=== PATIENT | female | born 1995 ===

== ENCOUNTER 2018-05-14 11:30 | Emergency (ER) | payer OTHER ==
[2018-05-14 11:35] VITALS: BMI 44.4
[2018-05-14 11:45] VITALS: BP 132/83; PULSE 92; RESP 16; TEMP 98.4; O2SAT 98
[2018-05-14] MEDS ORDERED: Sodium Chloride 0.9% 1,000 ML IV STA (11:49)
[2018-05-14 13:15] LABS: BASO # 0.03 K/mm3 (0.0-2.0); BASO % 0.4 % (0.0-3.0); EOS # 0.2 (0.0-0.7); EOS % 2.1 % (1.5-5.0); GRAN # 3.47 (1.4-6.5); GRAN % 49.1 % (50.0-68.0); HEMOGLOBIN 12.5 g/dL (12.0-16.0); LYMPH # 3.1 (1.2-3.4); LYMPH % 43.7 % (22.0-35.0); MEAN CELL VOLUME 83.4 fl (80.0-105.0); MEAN CORPUSCULAR HEMOGLOBIN 27.7 pg (25.0-35.0); MEAN CORPUSCULAR HGB CONC 33.2 g/dl (31.0-37.0); MEAN PLATELET VOLUME 9.8 fl (7.0-11.0); MONO # 0.3 (0.1-0.6); MONO % 4.7 % (1.0-6.0); RBC 4.51 10^6/uL (3.5-6.1); RED CELL DISTRIBUTION WIDTH 13.5 % (11.5-14.5); WHITE BLOOD COUNT 7.1 10^3/uL (4.5-11.0)
[2018-05-14 13:22] LABS: INR 1.09; PARTIAL THROMBOPLASTIN TIME 28.6 Seconds (25.1-36.5); PROTHROMBIN TIME 12.5 SECONDS (9.4-12.5)
[2018-05-14 13:31] LABS: ALB/GLOB RATIO 1.3 (1.1-1.8); ALBUMIN 4.8 g/dL (3.0-4.8); ALT/SGPT 46 U/L (7-56); AST/SGOT 49 U/L (14-36); BLOOD UREA NITROGEN 11 mg/dL (7-21); CALCIUM 9.2 mg/dL (8.4-10.5); GFR NON-AFRICAN AMERICAN > 60
--- NOTE | 2018-05-14 13:54 | ED PDOC ---
Arrival/HPI - General Historian: Patient - History of Present Illness Narrative History of Present Illness (Text): 05/14/18 13:47 22-year-old female presents today with lower abdominal cramping and vaginal bleeding. Patient states she's been having vaginal bleeding for the past 10 days. Patient states she is not sure when her last menstrual period was but she knows that it was last month. Patient states she believes that her period came on 10 days ago and she has been bleeding nonstop since. pt states this has been happening for the past 3 months where she will bleed for 10+ days. She denies chest pain or shortness of breath. Denies dizziness or weakness. Denies dysuria or urinary frequency. Denies back pain. pt states she has appointment with HOUSEPERSON tomorrow. No other complaints <Malgorzata Yen - Last Filed: 05/14/18 17:02> <Tarik Chun - Last Filed: 05/14/18 17:14> - General Chief Complaint: Female Genitourinary Time Seen by Provider: 05/14/18 11:36 Past Medical History - Provider Review Nursing Documentation Reviewed: Yes - Travel History Have you recently traveled outside [place] w/in the past 3 mons?: No - Psychiatric Hx Substance Use: No - Anesthesia Hx Anesthesia: No Hx Anesthesia Reactions: No Hx Malignant Hyperthermia: No <Malgorzata Yen - Last Filed: 05/14/18 17:02> Family/Social History - Physician Review Nursing Documentation Reviewed: Yes Family/Social History: Unknown Family HX Smoking Status: Never Smoked Hx Alcohol Use: No Hx Substance Use: No <Malgorzata Yen - Last Filed: 05/14/18 17:02> Allergies/Home Meds <Malgorzata Yen - Last Filed: 05/14/18 17:02> <Tarik Chun - Last Filed: 05/14/18 17:14> Allergies/Adverse Reactions: Allergies No Known Allergies Allergy (Verified 05/14/18 11:34) Home Medications: Home Meds Medication Instructions Recorded Confirmed RX: No Known Home Med 05/14/18 05/14/18 Review of Systems - Review of Systems Constitutional: absent: Fatigue, Fevers Respiratory: absent: SOB, Cough Cardiovascular: absent: Chest Pain, Palpitations Gastrointestinal: Abdominal Pain (lower pelvic cramping). absent: Constipation, Diarrhea, Nausea, Vomiting Genitourinary Female: Vaginal Bleeding. absent: Dysuria, Frequency, Hematuria Musculoskeletal: absent: Arthralgias, Back Pain, Neck Pain Skin: absent: Rash, Pruritis Neurological: absent: Headache, Dizziness Psychiatric: absent: Anxiety, Depression <Malgorzata Yen T - Last Filed: 05/14/18 17:02> Physical Exam Vital Signs Reviewed: Yes Vital Signs Temp Pulse Resp BP Pulse Ox 05/14/18 11:43 98.4 F 92 H 16 132/83 98 Temperature: Afebrile Blood Pressure: Normal Pulse: Regular Respiratory Rate: Normal Appearance: Positive for: Well-Appearing, Non-Toxic, Comfortable Pain Distress: None Mental Status: Positive for: Alert and Oriented X 3 - Systems Exam Head: Present: Atraumatic Mouth: Present: Moist Mucous Membranes Neck: Present: Normal Range of Motion Respiratory/Chest: Present: Clear to Auscultation, Good Air Exchange. No: Respiratory Distress, Accessory Muscle Use Cardiovascular: Present: Regular Rate and Rhythm, Normal S1, S2. No: Murmurs Abdomen: No: Tenderness, Distention, Rebound, Guarding Genitourinary/Pelvic Exam: Present: Normal External Genitalia, Vaginal Bleeding (minimal vaginal bleeding), Cervical os Closed, Other (chaparoned by Mabel doyle RN). No: Vaginal Discharge, Vaginal Lesions, Adenexal Tenderness, Adenexal Mass, Cervical Motion Tendernes, Odor Back: Present: Normal Inspection Upper Extremity: Present: Normal ROM Lower Extremity: Present: Normal ROM Neurological: Present: GCS=15 Skin: Present: Warm, Dry, Normal Color. No: Rashes Psychiatric: Present: Alert, Oriented x 3 <Malgorzata Yen T - Last Filed: 05/14/18 17:02> Vital Signs Temp Pulse Resp BP Pulse Ox 05/14/18 11:43 98.4 F 92 H 16 132/83 98 <Tarik Chun - Last Filed: 05/14/18 17:14> Medical Decision Making ED Course and Treatment: 05/14/18 13:54 Patient is nontoxic well appearing in no distress. vital signs are stable. CBC: wnl CMP: wnl Beta hCG: wnl Ultrasound: FINDINGS: UTERUS: Measures 7.4 x 3.8 x 4.8 cm. Normal in size and appearance. No fibroid or other mass lesion seen. ENDOMETRIUM: Measures 12.4 mm in diameter. No focal cystic or solid lesion associated. CERVIX: Cervix is remarkable for a few nabothian cyst anteriorly as well as posteriorly. RIGHT OVARY: Measures 4.1 x 2.3 x 3.1 cm. No solid mass. Normal flow. Multiple small cysts are identified suggestive of follicles with the largest measuring 1.4 cm greatest Dimension. LEFT OVARY: Measures 3.6 x 2.2 x 4.0 cm. No solid mass. Normal flow. Multiple follicles are identified with the largest measuring only 1.0 cm greatest dimension. FREE FLUID: No significant free fluid noted. OTHER FINDINGS: None. IMPRESSION: 1. Unremarkable uterus. 2. A few nabothian cysts seen related to the cervix which is otherwise unremarkable. 3. No ultrasound evidence of solid mass, suspicious cystic change or torsion pattern at either ovary. Bilateral follicles identified instead, somewhat greater the right than left side. Discussed all the results the patient. advised f/u with the foundry helper within the next 2 days. advised immediate return if symptoms worsen,persist or if new symptoms develop. Impression: Vaginal bleeding Tylenol every 4 hours as needed for pain Increase fluids Followup with the alloy weigher within the next 2 days Return immediately if symptoms worsen persist or if new symptoms develop: High fevers, heavy bleeding, severe abdominal pain, vomiting, diarrhea, dizziness or weakness or any other concerning symptoms develop. - Lab Interpretations Lab Results: 05/14/18 13:00 05/14/18 13:00 Lab Results 05/14/18 13:00: WBC 7.1, RBC 4.51, Hgb 12.5, Hct 37.6, MCV 83.4, MCH 27.7, MCHC 33.2, RDW 13.5, Plt Count 334, MPV 9.8, Gran % 49.1 L, Lymph % (Auto) 43.7 H, Hawkins % (Auto) 4.7, Eos % (Auto) 2.1, Baso % (Auto) 0.4, Gran # 3.47, Lymph # (Auto) 3.1, Hawkins # (Auto) 0.3, Eos # (Auto) 0.2, Baso # (Auto) 0.03 05/14/18 13:00: Sodium 142, Potassium 4.0, Chloride 102, Carbon Dioxide 29, Anion Gap 15, BUN 11, Creatinine 0.6 L, Est GFR ( Amer) > 60, Est GFR (Non-Af Amer) > 60, Random Glucose 89, Calcium 9.2, Total Bilirubin 0.3, AST 49 H, ALT 46, Alkaline Phosphatase 86, Total Protein 8.7 H, Albumin 4.8, Globulin 3.8, Albumin/Globulin Ratio 1.3 05/14/18 13:00: PT 12.5, INR 1.09, APTT 28.6 - RAD Interpretation Radiology Orders: 05/14/18 13:25 TRANSVAGINAL [US] Stat - Medication Orders Current Medication Orders: Discontinued Medications Sodium Chloride (Sodium Chloride 0.9%) 1,000 mls @ 999 mls/hr IV .Q1H1M STA Stop: 05/14/18 12:49 Last Admin: 05/14/18 12:58 Dose: 999 mls/hr eMAR Start Stop Document 05/14/18 12:58 KV (Rec: 05/14/18 12:58 KV [facility] [id number]) Intravenous Solution Start Date 05/14/18 Start Time 12:58 <Malgorzata Yen - Last Filed: 05/14/18 17:02> - Lab Interpretations Lab Results: 05/14/18 13:00 05/14/18 13:00 Lab Results 05/14/18 13:00: WBC 7.1, RBC 4.51, Hgb 12.5, Hct 37.6, MCV 83.4, MCH 27.7, MCHC 33.2, RDW 13.5, Plt Count 334, MPV 9.8, Gran % 49.1 L, Lymph % (Auto) 43.7 H, Hawkins % (Auto) 4.7, Eos % (Auto) 2.1, Baso % (Auto) 0.4, Gran # 3.47, Lymph # (Auto) 3.1, Hawkins # (Auto) 0.3, Eos # (Auto) 0.2, Baso # (Auto) 0.03 05/14/18 13:00: Beta HCG, Quant < 2.39 05/14/18 13:00: Sodium 142, Potassium 4.0, Chloride 102, Carbon Dioxide 29, Anion Gap 15, BUN 11, Creatinine 0.6 L, Est GFR ( Amer) > 60, Est GFR (Non-Af Amer) > 60, Random Glucose 89, Calcium 9.2, Total Bilirubin 0.3, AST 49 H, ALT 46, Alkaline Phosphatase 86, Total Protein 8.7 H, Albumin 4.8, Globulin 3.8, Albumin/Globulin Ratio 1.3 05/14/18 13:00: PT 12.5, INR 1.09, APTT 28.6 - Medication Orders Current Medication Orders: Discontinued Medications Sodium Chloride (Sodium Chloride 0.9%) 1,000 mls @ 999 mls/hr IV .Q1H1M STA Stop: 05/14/18 12:49 Last Admin: 05/14/18 12:58 Dose: 999 mls/hr eMAR Start Stop Document 05/14/18 12:58 KV (Rec: 05/14/18 12:58 KV [facility] [id number]) Intravenous Solution Start Date 05/14/18 Start Time 12:58 <Tarik Chun - Last Filed: 05/14/18 17:14> - PA / KEYBOARD SPECIALIST / Resident Statement MD/DO has reviewed & agrees with the documentation as recorded. <Tarik Chun - Last Filed: 05/14/18 17:14> Disposition/Present on Arrival - Present on Arrival Any Indicators Present on Arrival: No History of DVT/PE: No History of Uncontrolled Diabetes: No Urinary Catheter: No History of Decub. Ulcer: No History Surgical Site Infection Following: None - Disposition Have Diagnosis and Disposition been Completed?: Yes Disposition Time: 13:55 Patient Plan: Discharge <Malgorzata Yen - Last Filed: 05/14/18 17:02> <Tarik Chun - Last Filed: 05/14/18 17:14> - Disposition Diagnosis: Vaginal bleeding Disposition: HOME/ ROUTINE Condition: GOOD Additional Instructions: Tylenol every 4 hours as needed for pain Increase fluids Followup with the alloy weigher within the next 2 days Return immediately if symptoms worsen persist or if new symptoms develop: High fevers, heavy bleeding, severe abdominal pain, vomiting, diarrhea, dizziness or weakness or any other concerning symptoms develop. Referrals: Nayan Hartley MD [Staff Provider] - Follow up with primary Grace Chang MD [Medical Doctor] - Follow up with primary [facility] [Outside] - [facility] with [facility] [[facility]] - Follow up with primary Forms: [employer] (Hungarian), WORK NOTE
== END 2018-05-14 14:30 | disposition home or self-care (01) ==
LOC: ED 11:30
DX: N93.9 Abnormal uterine and vaginal bleeding, unspecified (principal)
CPT/HCPCS: 80053; 84702; 85025; 85610; 85730; 99283; J7030